=== PATIENT | male | born 1995 | race Hispanic/Latino ===

== ENCOUNTER 2017-01-27 12:36 | Emergency (ER) | payer OTHER ==
--- NOTE | 2017-01-27 14:54 | RAD ---
TWO VIEWS CHEST: Comparison: None. History: Chest pain, palpitations. Tachycardia. FINDINGS: Two views of the chest show normal sized cardiomediastinal silhouette. There is no evidence of consol idation, mass, or pleural effusion. The bones are unremarkable. IMPRESSION: No evidence of acute cardiopulmonary disease. POS: [facility]
== END 2017-01-27 15:27 ==
LOC: ERS 12:36 → EEVIPCON 12:36 → ERS 15:27
DX: R00.2 Palpitations (principal); M54.9 Dorsalgia, unspecified; F41.9 Anxiety disorder, unspecified
CPT/HCPCS: 71020; 93005